=== PATIENT | female | born 1945 ===

== ENCOUNTER 2020-05-21 21:56 | Inpatient (IN) | payer MEDICARE, BC ==
[~2020-05-21] VITALS: Ht 160 cm; Wt 73.8 kg
--- NOTE | 2020-05-21 22:23 | NUR ---
Pt is a transfer from [facility] for hypoxia. Pt dx with COVID on May 19 but started feeling sick on May 14. Patient noted to be hypoxia with little movement 65% RA. Patient currenlty on 2L NC. Patient resting comfortably at this time. Offers no complaints. Call light within reach, provider at bedside
[2020-05-21] MEDS ORDERED: PLEASE ENTER ALLERGIES MC SCH (22:30)
[2020-05-21] MEDS ORDERED: SODIUM CHLORIDE FLUSH 10ML SYR IVF ONE (22:30)
[2020-05-22] MEDS ORDERED: LABETALOL 5MG/ML, 20ML IVPush PRN
[2020-05-22] MEDS ORDERED: DOCUSATE 100 MG CAPSULE PO PRN
[2020-05-22] MEDS ORDERED: MELATONIN 5 MG TABLET PO PRN
[2020-05-22] MEDS ORDERED: ACETAMINOPHEN 325 MG TABLET PO PRN
[2020-05-22] MEDS ORDERED: PHARMACY MAY ADJ FOR RENAL FX MC PRN
[2020-05-22] MEDS ORDERED: LIDODERM 5% PATCH TD PRN
[2020-05-22] MEDS: BENZONATATE 100 MG CAPSULE PO SCH ×4 (00:28→21:42)
[2020-05-22] MEDS ORDERED: CARV25TA PO (00:37)
[2020-05-22 00:39] VITALS: BP 132/85
[2020-05-22 01:45] VITALS: BP 125/79
[2020-05-22 06:50] LABS: HCT (SEDRATE) 34.6 % (34.6-47.8)
[2020-05-22 06:52] LABS: MEAN CORPUSCULAR HEMOGLOBIN 34.5 pg (27.0-34.8); MEAN CORPUSCULAR HGB CONC 33.5 g/dL (32.4-35.8); MEAN PLATELET VOLUME 8.6 fL (7.4-10.4); PLATELET COUNT 131 x10^3/uL (130-400); RED BLOOD COUNT 3.39 x10^6/uL (3.82-5.3); RED CELL DISTRIBUTION WIDTH 13.5 % (9.6-15.2)
[2020-05-22 07:00] LABS: ALBUMIN 2.8 g/dL (3.4-5.0); ANION GAP 8 mmol/L (5-15); CALCIUM 7.8 mg/dL (8.5-10.1); CHLORIDE 112 mmol/L (98-107); D-DIMER 0.68 ug/mlFEU (0.00-0.52); INTERNATIONAL NORMALIZED RATIO 0.9 (0.93-1.1); PROTHROMBIN TIME 9.6 Seconds (9.6-11.5)
[2020-05-22 07:07] LABS: ALANINE AMINOTRANSFERASE 18 U/L (12-78); ALKALINE PHOSPHATASE 45 U/L (45-117); BILIRUBIN,TOTAL 0.2 mg/dL (0.2-1.0); CREATINE KINASE, TOTAL 82 U/L (26-192); CREATININE 0.94 mg/dL (0.55-1.02); TOTAL PROTEIN 6.1 g/dL (6.4-8.2)
[2020-05-22 07:27] LABS: MD YES
[2020-05-22 07:28] VITALS: BP 135/72
[2020-05-22 07:30] LABS: ANISOCYTOSIS 1+; BAND#(MANUAL) 0.06 x10^3/uL; BANDS%(MANUAL) 3 % (0-7); LYMPH#(MANUAL) 0.27 x10^3/uL (1-3.4); LYMPHS% (MANUAL) 13 % (22-44); MONOS#(MANUAL) 0.06 x10^3/uL (0.3-2.7); MONOS% (MANUAL) 3 % (2-9); SEGS% (MANUAL) 81 % (42-75)
[2020-05-22 07:31] LABS: HYPOCHROMIA 1+
[2020-05-22 07:32] LABS: ECHINOCYTES 1+
[2020-05-22 07:34] LABS: <PLATELET ESTIMATE> ADEQUATE; <PLT MORPHOLOGY> NORMAL PLT MORPH
[2020-05-22] MEDS: FLUTICASONE/VILANTEROL 200-25MCG/INH INH SCH (09:00)
[2020-05-22] MEDS: ASCORBIC ACID 500 MG TABLET PO SCH ×2 (11:08→21:42)
[2020-05-22] MEDS: ZINC SULFATE 220 MG CAPSULE PO SCH (11:08)
[2020-05-22] MEDS: CHOLECALCIFEROL 5,000u TAB PO SCH (11:08)
[2020-05-22] MEDS: DEXAMETHASONE 4 MG/ML, 1ML IVPush SCH (11:08)
[2020-05-22] MEDS: ENOXAPARIN 40 MG/0.4 ML SQ SCH (11:09)
[2020-05-22] MEDS ORDERED: DULO30CA44 PO (12:34)
[2020-05-22] MEDS ORDERED: LEVO100C4 PO (12:34)
[2020-05-22] MEDS ORDERED: SERT-238 PO (12:34)
[2020-05-22] MEDS ORDERED: FLUT1BLS3 IH (12:34)
[2020-05-22] MEDS ORDERED: SERT100T PO ×2 (12:34→12:35)
[2020-05-22 13:51] VITALS: BP 144/82
[2020-05-22] MEDS: CEFTRIAXONE PMX 1GM/50ML 50 ML IVPB SCH (15:07)
[2020-05-22] MEDS: AZITHROMYCIN 500 MG in SODIUM CHLORIDE 0.9% 250 ML IV SCH (16:30)
[2020-05-22] MEDS: REMDESIVIR 100 MG in SODIUM CHLORIDE 0.9% 250 ML IVPB SCH (18:05)
[2020-05-22 20:07] VITALS: BP 139/80
[2020-05-22] MEDS ORDERED: CARVEDILOL 25 MG TABLET PO SCH (21:00)
[2020-05-22] MEDS: DULOXETINE 30 MG CAPSULE.DR PO SCH (21:43)
[2020-05-22] MEDS: CARVEDILOL 25 MG TABLET PO SCH (21:43)
[2020-05-22] MEDS: TRAZODONE 50MG TABLET PO PRN (21:51)
[2020-05-23 01:20] VITALS: BP 132/69
[2020-05-23 06:16] LABS: BASOPHILS % (AUTO) 0 % (0-1); EOSINOPHILS % (AUTO) 0 % (1-7); LYMPHOCYTES % (AUTO) 8 % (22-44); MEAN CORPUSCULAR HEMOGLOBIN 34.4 pg (27.0-34.8); MEAN CORPUSCULAR HGB CONC 33.5 g/dL (32.4-35.8); MEAN PLATELET VOLUME 7.8 fL (7.4-10.4); MONOCYTES % (AUTO) 6 % (2-9); NEUTROPHILS % (AUTO) 86 % (42-75); PLATELET COUNT 161 x10^3/uL (130-400); RED BLOOD COUNT 3.51 x10^6/uL (3.82-5.3); RED CELL DISTRIBUTION WIDTH 13.7 % (9.6-15.2)
[2020-05-23 06:17] LABS: MD NO
[2020-05-23 06:19] LABS: HCT (SEDRATE) 36.1 % (34.6-47.8)
[2020-05-23] MEDS: ASPIRIN 81 MG TABLET EC PO SCH (06:30)
[2020-05-23 06:32] LABS: ANION GAP 7 mmol/L (5-15); CALCIUM 8.3 mg/dL (8.5-10.1); CHLORIDE 114 mmol/L (98-107)
[2020-05-23 06:41] LABS: CREATINE KINASE, TOTAL 93 U/L (26-192); CREATININE 0.88 mg/dL (0.55-1.02)
[2020-05-23 07:03] VITALS: BP 151/80
[2020-05-23] MEDS: (Fluticasone/Umeclidin/Vilanter (Trelegy Ellipta 100-62.5-25 INH SCH (09:00)
[2020-05-23] MEDS: FLUTICASONE/VILANTEROL 200-25MCG/INH INH SCH (09:00)
[2020-05-23] MEDS: BENZONATATE 100 MG CAPSULE PO SCH ×3 (09:32→21:18)
[2020-05-23] MEDS: CHOLECALCIFEROL 5,000u TAB PO SCH (09:32)
[2020-05-23] MEDS: ZINC SULFATE 220 MG CAPSULE PO SCH (09:32)
[2020-05-23] MEDS: ASCORBIC ACID 500 MG TABLET PO SCH ×2 (09:32→21:18)
[2020-05-23] MEDS: DULOXETINE 30 MG CAPSULE.DR PO SCH ×2 (09:32→21:18)
[2020-05-23] MEDS: LEVOTHYROXINE 100 MCG TABLET PO SCH (09:32)
[2020-05-23] MEDS: DEXAMETHASONE 4 MG/ML, 1ML IVPush SCH (09:33)
[2020-05-23] MEDS: CARVEDILOL 25 MG TABLET PO SCH ×2 (09:33→21:18)
[2020-05-23] MEDS: ENOXAPARIN 40 MG/0.4 ML SQ SCH (12:00)
[2020-05-23] MEDS: ALBUTEROL HFA 90 MCG/SPRAY INH PRN ×2 (12:27→16:12)
[2020-05-23 14:28] VITALS: BP 129/82
[2020-05-23] MEDS: CEFTRIAXONE PMX 1GM/50ML 50 ML IVPB SCH (15:51)
[2020-05-23] MEDS: AZITHROMYCIN 500 MG in SODIUM CHLORIDE 0.9% 250 ML IV SCH (17:34)
[2020-05-23] MEDS: REMDESIVIR 100 MG in SODIUM CHLORIDE 0.9% 250 ML IVPB SCH (19:22)
[2020-05-23 20:34] VITALS: BP 135/79
[2020-05-23] MEDS: TRAZODONE 50MG TABLET PO PRN (21:18)
[2020-05-24 01:41] VITALS: BP 135/79
[2020-05-24] MEDS: ASPIRIN 81 MG TABLET EC PO SCH (06:20)
[2020-05-24 07:11] VITALS: BP 163/90
[2020-05-24 07:48] LABS: BASOPHILS % (AUTO) 0 % (0-1); EOSINOPHILS % (AUTO) 0 % (1-7); LYMPHOCYTES % (AUTO) 7 % (22-44); MEAN CORPUSCULAR HEMOGLOBIN 34.2 pg (27.0-34.8); MEAN CORPUSCULAR HGB CONC 33.6 g/dL (32.4-35.8); MEAN PLATELET VOLUME 8.1 fL (7.4-10.4); MONOCYTES % (AUTO) 6 % (2-9); NEUTROPHILS % (AUTO) 87 % (42-75); PLATELET COUNT 187 x10^3/uL (130-400); RED BLOOD COUNT 3.49 x10^6/uL (3.82-5.3); RED CELL DISTRIBUTION WIDTH 13.7 % (9.6-15.2)
[2020-05-24 07:52] LABS: MD NO
[2020-05-24 07:59] LABS: ALBUMIN 2.8 g/dL (3.4-5.0); ANION GAP 8 mmol/L (5-15); CALCIUM 8.2 mg/dL (8.5-10.1); CHLORIDE 113 mmol/L (98-107)
[2020-05-24 08:14] LABS: ALANINE AMINOTRANSFERASE 19 U/L (12-78); ALKALINE PHOSPHATASE 47 U/L (45-117); BILIRUBIN,TOTAL 0.2 mg/dL (0.2-1.0); CREATINE KINASE, TOTAL 107 U/L (26-192); TOTAL PROTEIN 6.1 g/dL (6.4-8.2)
[2020-05-24] MEDS: (Fluticasone/Umeclidin/Vilanter (Trelegy Ellipta 100-62.5-25 INH SCH (09:00)
[2020-05-24] MEDS: FLUTICASONE/VILANTEROL 200-25MCG/INH INH SCH (09:00)
[2020-05-24] MEDS: ALBUTEROL HFA 90 MCG/SPRAY INH PRN ×2 (09:25→14:35)
[2020-05-24] MEDS: ZINC SULFATE 220 MG CAPSULE PO SCH (09:28)
[2020-05-24] MEDS: CARVEDILOL 25 MG TABLET PO SCH ×2 (09:29→20:11)
[2020-05-24] MEDS: ASCORBIC ACID 500 MG TABLET PO SCH ×2 (09:29→20:12)
[2020-05-24] MEDS: CHOLECALCIFEROL 5,000u TAB PO SCH (09:29)
[2020-05-24] MEDS: LEVOTHYROXINE 100 MCG TABLET PO SCH (09:30)
[2020-05-24] MEDS: DULOXETINE 30 MG CAPSULE.DR PO SCH ×2 (09:30→20:11)
[2020-05-24] MEDS: BENZONATATE 100 MG CAPSULE PO SCH ×3 (09:30→20:11)
[2020-05-24] MEDS: DEXAMETHASONE 4 MG/ML, 1ML IVPush SCH (09:31)
[2020-05-24] MEDS: ENOXAPARIN 40 MG/0.4 ML SQ SCH (12:00)
[2020-05-24 12:08] VITALS: BP 156/74
[2020-05-24 13:58] LABS: RAPID INFLUENZA A Negative (Negative); RAPID INFLUENZA B Negative (Negative)
[2020-05-24] MEDS: LORazepam 1MG TABLET PO PRN (14:36)
[2020-05-24] MEDS: CEFTRIAXONE PMX 1GM/50ML 50 ML IVPB SCH (15:30)
[2020-05-24] MEDS: AZITHROMYCIN 500 MG in SODIUM CHLORIDE 0.9% 250 ML IV SCH (17:32)
[2020-05-24 19:58] VITALS: BP 157/88
[2020-05-24] MEDS: REMDESIVIR 100 MG in SODIUM CHLORIDE 0.9% 250 ML IVPB SCH (21:53)
[2020-05-24] MEDS: TRAZODONE 50MG TABLET PO PRN (21:53)
[2020-05-25 01:44] VITALS: BP 159/79
[2020-05-25] MEDS: ASPIRIN 81 MG TABLET EC PO SCH (05:26)
[2020-05-25 06:34] VITALS: BP 161/79
[2020-05-25] MEDS: FLUTICASONE/VILANTEROL 200-25MCG/INH INH SCH (09:00)
[2020-05-25] MEDS: (Fluticasone/Umeclidin/Vilanter (Trelegy Ellipta 100-62.5-25 INH SCH (09:00)
[2020-05-25] MEDS: ASCORBIC ACID 500 MG TABLET PO SCH ×2 (09:06→21:08)
[2020-05-25] MEDS: ZINC SULFATE 220 MG CAPSULE PO SCH (09:06)
[2020-05-25] MEDS: DEXAMETHASONE 4 MG/ML, 1ML IVPush SCH (09:06)
[2020-05-25] MEDS: BENZONATATE 100 MG CAPSULE PO SCH ×3 (09:06→21:08)
[2020-05-25] MEDS: CARVEDILOL 25 MG TABLET PO SCH ×2 (09:06→21:09)
[2020-05-25] MEDS: DULOXETINE 30 MG CAPSULE.DR PO SCH ×2 (09:06→21:00)
[2020-05-25] MEDS: CHOLECALCIFEROL 5,000u TAB PO SCH (09:07)
[2020-05-25] MEDS: LEVOTHYROXINE 100 MCG TABLET PO SCH (09:07)
[2020-05-25] MEDS: LORazepam 1MG TABLET PO PRN (09:15)
[2020-05-25] MEDS: ENOXAPARIN 40 MG/0.4 ML SQ SCH (12:00)
[2020-05-25 12:04] VITALS: BP 158/87
[2020-05-25] MEDS: CEFTRIAXONE PMX 1GM/50ML 50 ML IVPB SCH (14:47)
[2020-05-25] MEDS: AZITHROMYCIN 500 MG in SODIUM CHLORIDE 0.9% 250 ML IV SCH (17:09)
[2020-05-25 19:29] VITALS: BP 113/74
[2020-05-25] MEDS: TRAZODONE 50MG TABLET PO PRN (21:08)
[2020-05-25] MEDS: REMDESIVIR 100 MG in SODIUM CHLORIDE 0.9% 250 ML IVPB SCH (21:45)
[2020-05-26 01:02] VITALS: BP 159/87
[2020-05-26] MEDS: ASPIRIN 81 MG TABLET EC PO SCH (05:24)
[2020-05-26 06:51] VITALS: BP 153/83
[2020-05-26] MEDS: (Fluticasone/Umeclidin/Vilanter (Trelegy Ellipta 100-62.5-25 INH SCH (09:00)
[2020-05-26] MEDS ORDERED: DEXAMETHASONE 4 MG/ML, 1ML IVPush SCH (09:00)
[2020-05-26] MEDS: DULOXETINE 30 MG CAPSULE.DR PO SCH (09:00)
[2020-05-26] MEDS: CARVEDILOL 25 MG TABLET PO SCH (09:30)
[2020-05-26] MEDS: LORazepam 1MG TABLET PO PRN (09:30)
[2020-05-26] MEDS: LEVOTHYROXINE 100 MCG TABLET PO SCH (09:30)
[2020-05-26] MEDS: ASCORBIC ACID 500 MG TABLET PO SCH (09:30)
[2020-05-26] MEDS: ZINC SULFATE 220 MG CAPSULE PO SCH (09:30)
[2020-05-26] MEDS: BENZONATATE 100 MG CAPSULE PO SCH (09:30)
[2020-05-26] MEDS: CHOLECALCIFEROL 5,000u TAB PO SCH (09:31)
[2020-05-26] MEDS: FLUTICASONE/VILANTEROL 200-25MCG/INH INH SCH (09:31)
[2020-05-26] MEDS: ENOXAPARIN 40 MG/0.4 ML SQ SCH (11:11)
[2020-05-26 12:06] VITALS: BP 145/91
[2020-05-26] MEDS ORDERED: CEFTRIAXONE PMX 1GM/50ML 50 ML IVPB SCH (15:00)
[2020-05-28] MEDS ORDERED: DEXAMETHASONE 4 MG/ML, 1ML IVPush SCH (09:00)
== END 2020-05-26 15:17 | disposition home or self-care (01) | DRG 177 ==
LOC: ED 22:49 → EDIP 23:00 → 4EST 05-22 00:04
PROVIDERS: ADMIT Family Medicine; ATTEND Family Medicine
PROC: XW033E5 Introduction of Remdesivir Anti-infective into Peripheral Vein, Percutaneous Approach, New Technology Group 5 (ICD-10-PCS; principal; 2020-05-21)
DX: U07.1 COVID-19 (principal); J96.01 Acute respiratory failure with hypoxia; J12.82 Pneumonia due to coronavirus disease 2019; J96.21 Acute and chronic respiratory failure with hypoxia; E87.2 Acidosis; Z88.2 Allergy status to sulfonamides; D72.819 Decreased white blood cell count, unspecified; E03.9 Hypothyroidism, unspecified; E78.5 Hyperlipidemia, unspecified; F32.9 Major depressive disorder, single episode, unspecified; F41.9 Anxiety disorder, unspecified; I12.9 Hypertensive chronic kidney disease with stage 1 through stage 4 chronic kidney disease, or unspecified chronic kidney disease; J43.9 Emphysema, unspecified; J84.89 Other specified interstitial pulmonary diseases; K58.0 Irritable bowel syndrome with diarrhea; M19.90 Unspecified osteoarthritis, unspecified site; N18.9 Chronic kidney disease, unspecified; Z80.6 Family history of leukemia; Z82.49 Family history of ischemic heart disease and other diseases of the circulatory system; Z87.891 Personal history of nicotine dependence; Z90.710 Acquired absence of both cervix and uterus
CPT/HCPCS: 36415; 80048; 80053; 82550; 82728; 83615; 84145; 85025; 85379; 85384; 85610; 85651; 85730; 86140; 87400; G0378; J0456; J0696; J1100; J1650; J7050